=== PATIENT | female | born 1955 | race Caucasian/White ===

== ENCOUNTER 2018-09-13 16:22 | Emergency (ER) | payer OTHER ==
[~2018-09-13] VITALS: Ht 162.6 cm; Wt 68.9 kg
[2018-09-13 16:22] VITALS: BP_SYST 116
[2018-09-13 16:59] LABS: BILIRUBIN,URINE NEGATIVE (NEGATIVE); BLOOD, URINE NEGATIVE (NEGATIVE); CLARITY/URINE CLEAR (CLEAR); COLOR,URINE YELLOW (YELLOW); GLUCOSE,URINE NEGATIVE (NEGATIVE); KETONES,URINE NEGATIVE (NEGATIVE); LEUKOCYTE ESTERASE ,URINE NEGATIVE (NEGATIVE); NITRITE, URINE NEGATIVE (NEGATIVE); PROTEIN URINE NEGATIVE (NEGATIVE); UROBILINOGEN,URINE 0.2 (0.2-1.0)
[2018-09-13] MEDS ORDERED: NACL 0.9% 1,000 ML IV ONE (17:00)
[2018-09-13] MEDS ORDERED: KETOROLAC TROMETHAMINE 15 MG VIAL IVP ONE (17:00)
[2018-09-13 17:49] LABS: CALCIUM 9.3 mg/dL (8.4-11.0); CREATININE 0.78 mg/dL (0.55-1.30)
[2018-09-13 17:53] LABS: POTASSIUM 2.9 mmol/L (3.5-5.1)
[2018-09-13 17:54] LABS: ALBUMIN 3.7 g/dL (3.4-4.8); TOTAL BILIRUBIN 0.4 mg/dL (0.0-1.0)
[2018-09-13] MEDS ORDERED: POTASSIUM CHLORIDE 20 MEQ TAB.PRT.SR PO ONE (18:15)
[2018-09-13 18:36] LABS: HEMATOCRIT 38.8 % (36-48); HEMOGLOBIN 12.7 g/dL (12.0-16.0); RED BLOOD CELL COUNT(AUTO) 4.24 MIL/uL (4.2-6.2); WHITE BLOOD COUNT (AUTO) 10.4 K/uL (4.8-10.8)
[2018-09-13 18:37] LABS: MEAN CORPUSCULAR HEMOGLOBIN 30 pg (27-31); MEAN CORPUSCULAR HGB CONC 33 % (32-36); MEAN CORPUSCULAR VOLUME 92 fL (79.0-98.0); RED CELL DISTRIBUTION WIDTH 12.9 % (9.0-15.0)
[2018-09-13 18:38] LABS: PLATELET COUNT (AUTO) 182 K/uL (130-430)
[2018-09-13 19:38] LABS: BAND % (MANUAL) 3 % (0-6); BASOPHILS % (MANUAL) 0 % (0-2); EOSINOPHILS % (MANUAL) 0 % (0-7); LYMPHOCYTES % (MANUAL) 26 % (20-46); MONOCYTES % (MANUAL) 9 % (0-11)
== END 2018-09-13 19:23 | disposition home or self-care (01) ==
LOC: SED 16:22
DX: M54.5 Low back pain (principal); F32.9 Major depressive disorder, single episode, unspecified; J44.9 Chronic obstructive pulmonary disease, unspecified; I10 Essential (primary) hypertension; Z88.6 Allergy status to analgesic agent; Z91.041 Radiographic dye allergy status; Z91.040 Latex allergy status
CPT/HCPCS: 36415; 70450; 74176; 80053; 81003; 85007; 85027; 96374; 99285; J1885; J7030

== ENCOUNTER 2020-05-09 13:57 | Inpatient (IN) | payer OTHER, SELFPAY ==
[~2020-05-09] VITALS: Ht 162.6 cm; Wt 44.9 kg
--- NOTE | 2020-05-09 14:00 | NUR ---
Patient to ER bed 07 to gown for evaluation. Side rails up.
--- NOTE | 2020-05-09 14:02 | NUR ---
Pt brought by self, A&Ox4, pt presents to ER with bright red rectal bleeding whem she wipes and constipation, pt states symptoms started months ago , skin pink and warm, cap refill <3, VSS, respirations even and unlabored, pt denies N/V/D or other injuries
[2020-05-09 14:14] VITALS: BP_SYST 140
--- NOTE | 2020-05-09 14:15 | NUR ---
Dr Merrill at bedside examining patient
[2020-05-09] MEDS ORDERED: NACL 0.9% 1,000 ML IV ONE (14:38)
[2020-05-09] MEDS ORDERED: PANTOPRAZOLE SODIUM 40 MG/VIAL (PROTONIX) IVP ONE (14:45)
--- NOTE | 2020-05-09 14:50 | NUR ---
# 20 gauge angiocath placed to left wrist. Use of asceptic technique. Opsite placed over site. Blood return noted. Blood for lab drawn from site. Flushed with 10 cc of normal saline. No evidence of infiltration noted. Patient tolerated well.
--- NOTE | 2020-05-09 15:20 | NUR ---
urine sample collected and sent to the lab
--- NOTE | 2020-05-09 15:20 | NUR ---
medicated the pt w/ Protonix and NS 1l per MD order
[2020-05-09 15:34] LABS: BASOPHILS % (AUTO) 0.3 % (0.0-2.0); EOSINOPHILS % (AUTO) 0.3 % (0.0-4.0); HEMATOCRIT 40.5 % (36-48); HEMOGLOBIN 13.8 g/dL (12.0-16.0); LYMPHOCYTES # (AUTO) 1.2 K/uL (1.0-5.5); MEAN CORPUSCULAR HEMOGLOBIN 31 pg (27-31); MEAN CORPUSCULAR HGB CONC 34 % (32-36); MEAN CORPUSCULAR VOLUME 92 fL (79.0-98.0); MONOCYTES # (AUTO) 0.3 K/uL (0.0-1.0); MONOCYTES % (AUTO) 7.1 % (1.7-9.3); NEUTROPHILS # (AUTO) 2.3 K/uL (1.8-7.7); NEUTROPHILS % (AUTO) 60.3 % (40.0-70.0); PLATELET COUNT (AUTO) 283 K/uL (130-430); RED BLOOD CELL COUNT(AUTO) 4.41 MIL/uL (4.2-6.2); RED CELL DISTRIBUTION WIDTH 13.2 % (9.0-15.0); WHITE BLOOD COUNT (AUTO) 3.7 K/uL (4.8-10.8)
[2020-05-09 15:42] LABS: PROTHROMBIN TIME 10.2 SECS (9.5-12.5)
[2020-05-09 15:43] LABS: BILIRUBIN,URINE 1+ (NEGATIVE); BLOOD, URINE NEGATIVE (NEGATIVE); COLOR,URINE YELLOW (YELLOW); GLUCOSE,URINE NEGATIVE (NEGATIVE); KETONES,URINE 1+ (NEGATIVE); LEUKOCYTE ESTERASE ,URINE NEGATIVE (NEGATIVE); NITRITE, URINE NEGATIVE (NEGATIVE); PH,URINE 5.5 (5.0-8.0); PROTEIN URINE TRACE (NEGATIVE); UROBILINOGEN,URINE 0.2 (0.2-1.0)
[2020-05-09 15:47] LABS: CALCIUM 9.2 mg/dL (8.4-11.0); CREATININE 0.64 mg/dL (0.55-1.30); POTASSIUM 3.6 mmol/L (3.5-5.1)
[2020-05-09 15:51] LABS: ALBUMIN 4.1 g/dL (3.4-4.8); TOTAL BILIRUBIN 0.4 mg/dL (0.0-1.0)
[2020-05-09 15:55] LABS: CLARITY/URINE SLIGHTLY HAZY (CLEAR)
[2020-05-09] MEDS ORDERED: CLOPIDOGREL BISULFATE 75 MG TABLET PO ONE (16:00)
[2020-05-09] MEDS ORDERED: ASPIRIN 81 MG TAB.CHEW PO ONE (16:00)
[2020-05-09 16:25] LABS: BACTERIA,URINE FEW /HPF (None Seen); RBC,URINE NONE SEEN /HPF (0-3); WBC,URINE 0-3 /HPF (0-3)
[2020-05-09 16:26] LABS: MUCUS,URINE 1+ /LPF (None Seen)
--- NOTE | 2020-05-09 16:30 | NUR ---
medicated the pt w/ Plavix and Aspirin per MD order. Will reasses
[2020-05-09 16:37] LABS: BASOPHILS % (AUTO) 0.4 % (0.0-2.0); EOSINOPHILS % (AUTO) 0.5 % (0.0-4.0); HEMATOCRIT 35.5 % (36-48); HEMOGLOBIN 12.2 g/dL (12.0-16.0); LYMPHOCYTES # (AUTO) 1.1 K/uL (1.0-5.5); LYMPHOCYTES % (AUTO) 30.8 % (20.5-51.5); MEAN CORPUSCULAR HEMOGLOBIN 32 pg (27-31); MEAN CORPUSCULAR HGB CONC 34 % (32-36); MEAN CORPUSCULAR VOLUME 92 fL (79.0-98.0); MONOCYTES # (AUTO) 0.3 K/uL (0.0-1.0); NEUTROPHILS # (AUTO) 2.1 K/uL (1.8-7.7); NEUTROPHILS % (AUTO) 59.3 % (40.0-70.0); PLATELET COUNT (AUTO) 243 K/uL (130-430); RED BLOOD CELL COUNT(AUTO) 3.85 MIL/uL (4.2-6.2); RED CELL DISTRIBUTION WIDTH 13.3 % (9.0-15.0); WHITE BLOOD COUNT (AUTO) 3.5 K/uL (4.8-10.8)
--- NOTE | 2020-05-09 16:38 | NUR ---
Patient will be admitted to care of Dr. Lewis. Admitted to tele obs unit. Will go to room 106-a. Belongings list completed. Complete and up to date summary report printed. SBAR report to be given at bedside with opportunity for questions. IV is on the LAC patent and infusing well
[2020-05-09] MEDS ORDERED: LISI10TA PO (16:42)
--- NOTE | 2020-05-09 16:43 | NUR ---
Medication reconciliation completed with information provided by pt. Any prior medication reconciliation on file was reviewed and corrected.
--- NOTE | 2020-05-09 16:54 | NUR ---
ADMISSION NOTE Received patient from ER via delgado, received report from TUSHAR PORTER. Patient admitted with diagnosis of ELEVATED TROPONIN. Patient oriented to hospital routine, call light, toileting and safety-patient verbalized understanding.
[2020-05-09 17:07] VITALS: BP_SYST 143
--- NOTE | 2020-05-09 18:19 | NUR ---
CONSULTATION PAGED/CALLED Reason for Consultation: [] chf Person Who was Notified: [] nolan Consulting Physician: [] Dr Camp Residential Treatment Specialist Specialty: [] Cardio Ordering Physician: [] Dr Lewis
--- NOTE | 2020-05-09 19:09 | NUR ---
Handoff with night team registered nurse. Hugh Gallegos RN
[2020-05-09 19:11] VITALS: BP_SYST 163
[2020-05-10 00:22] VITALS: BP_SYST 111
[2020-05-10 06:28] LABS: BASOPHILS % (AUTO) 0.6 % (0.0-2.0); EOSINOPHILS # (AUTO) 0.1 K/uL (0.0-0.4); EOSINOPHILS % (AUTO) 1.7 % (0.0-4.0); HEMATOCRIT 34.2 % (36-48); HEMOGLOBIN 11.8 g/dL (12.0-16.0); LYMPHOCYTES # (AUTO) 1.7 K/uL (1.0-5.5); LYMPHOCYTES % (AUTO) 45.2 % (20.5-51.5); MEAN CORPUSCULAR HEMOGLOBIN 31 pg (27-31); MEAN CORPUSCULAR HGB CONC 34 % (32-36); MEAN CORPUSCULAR VOLUME 91 fL (79.0-98.0); MONOCYTES # (AUTO) 0.3 K/uL (0.0-1.0); MONOCYTES % (AUTO) 7.1 % (1.7-9.3); NEUTROPHILS # (AUTO) 1.7 K/uL (1.8-7.7); NEUTROPHILS % (AUTO) 45.4 % (40.0-70.0); PLATELET COUNT (AUTO) 222 K/uL (130-430); RED BLOOD CELL COUNT(AUTO) 3.78 MIL/uL (4.2-6.2); RED CELL DISTRIBUTION WIDTH 13.2 % (9.0-15.0); WHITE BLOOD COUNT (AUTO) 3.7 K/uL (4.8-10.8)
[2020-05-10 07:00] VITALS: BP_SYST 115
--- NOTE | 2020-05-10 07:20 | NUR ---
CRITICAL LAB VALUE: TROPONIN 0.070. CALL MADE TO DR. WAKEFIELD - BEAM BUILDER ON PT'S CASE. AWAITING CALL-BACK.
--- NOTE | 2020-05-10 07:35 | NUR ---
DR WAKEFIELD CALLED BACK. CRITICAL LAB VALUE FOR TROPONIN OF 0.070 RELAYED TO HIM. . AWARE. NO NEW ORDERS.
[2020-05-10 11:39] VITALS: BP_SYST 122
[2020-05-10] MEDS ORDERED: ONDANSETRON HCL 4 MG/2 ML VIAL IVP PRN (12:30)
[2020-05-10] MEDS ORDERED: LORazepam 2 MG/ML VIAL IVP PRN (12:30)
[2020-05-10] MEDS ORDERED: ACETAMINOPHEN 325 MG TABLET PO PRN (12:30)
[2020-05-10] MEDS ORDERED: DIATR MEGLU/DIATRIZ SOD 30 ML SOLUTION PO ONE (13:57)
[2020-05-10] MEDS ORDERED: NORMAL SALINE 5 ML DISP.SYRIN IVF SCH (14:00)
[2020-05-10] MEDS: NORMAL SALINE 5 ML DISP.SYRIN IVF SCH ×2 (14:00→22:45)
[2020-05-10 15:34] VITALS: BP_SYST 120
[2020-05-10 16:00] VITALS: BP_SYST 121
--- NOTE | 2020-05-10 19:07 | NUR ---
Narrative Note: Received pt awoke alert OX3 lungs clear, abdomen soft, skin intact. Pt's V/SS denies having any pain. Pt GI Physician ordered a CT of the abdomen with contrast Pt was NPO after drinking contrast.. Pt went for CT around 1600 and was back on the unit fifteen minutes later. Pt mainly stayed in bed calm, quiet. hourly rounding was on going. Endorsed to night nurse.
--- NOTE | 2020-05-10 19:30 | NUR ---
OPENING NOTES RECEIVED SBAR REPORT FROM DAY SHIFT RN. PT RESTING IN BED, ALERT & ORIENTED X4. VSS. O2 SAT 100%. BREATHING EVEN AND UNLABORED TO ROOM AIR. PT DENIES ANY PAIN AT THIS TIME. CALL LIGHT WITHIN REACH. BED LOCKED IN LOWEST LEVEL. SAFETY AND FALL PRECAUTIONS ARE IN PLACE. WILL CONTINUE TO MONITOR.
--- NOTE | 2020-05-10 19:31 | NUR ---
Narrative Note: Received report from household refrigerator mechanic nurse that the pt went for EGD. Pt back on the unit around 0930 awoke confused trying to get out of bed. Also observed pt has two point soft wrist restraints. Pt's lung are clear, V/SS, abdomen soft and skin intact. The Nurse sat with the pt thru-out her shift and did give Haldol X1 for pt agitation. Pt restraints were loosen and the pt was monitored closely. for safety and fall prevention. Pt's bed was kept in low position with wheels locked. IVF running, and IV site patent intact. Endorsed to household refrigerator mechanic nurse.
[2020-05-10 20:00] VITALS: BP_SYST 119
--- NOTE | 2020-05-10 22:45 | NUR ---
SALINE FLUSH SALINE FLUSHED WITH 5ML BUT IV WAS LEAKING. REMOVED IV ON LEFT AC 20G. WILL START NEW IV. NO S/S OF DISTRESS AT THIS TIME, PT DENIES ANY PAIN. CALL LIGHT WITHIN REACH. SIDE RAILS X2. BED LOCKED IN LOWEST LEVEL. SAFETY AND FALL PRECAUTIONS IN PLACE. WILL CONTINUE TO MONITOR.
[2020-05-11] VITALS: BP_SYST 117
--- NOTE | 2020-05-11 00:44 | NUR ---
YOAN/ER ADMITTING WAS INFORMED PT HAS BEEN CONVERTED FROM OBSERVATION TO INPATIENT. YOAN WAS ALSO INFORMED ADMITTING MD IS NOW DR. CHILD. YOAN VERBALIZED UNDERSTANDING AND STATED A NEW WRIST ID BAND WILL BE AVAILABLE SOON. PRIMARY NURSE JUSTINA WAS NOTIFIED TO CLIENT SERVICES ADMINISTRATOR NEW WRIST ID BAND FROM ER ADMITTING.
--- NOTE | 2020-05-11 01:05 | NUR ---
RN ROUNDS PT RESTING IN BED, TALKING ON THE PHONE. BREATHING EVEN AND UNLABORED TO ROOM AIR. NO S/S OF DISTRESS NOTED. IV INTACT, SL. BED LOCKED IN LOWEST LEVEL. SIDE RAILS X2. CALL LIGHT WITHIN REACH. SAFETY AND FALL PRECAUTIONS MAINTAINED. WILL CONTINUE TO MONITOR.
--- NOTE | 2020-05-11 01:38 | NUR ---
IV PLACEMENT: # 22 gauge angiocath placed to RIGHT FOREARM. Use of asceptic technique. Opsite placed over site. Blood return noted. Flushed with 5 cc of normal saline. No evidence of infiltration noted. Patient tolerated WELL Start time End time
--- NOTE | 2020-05-11 04:05 | NUR ---
RN ROUNDS PT RESTING IN BED. BREATHING EVEN AND UNLABORED TO ROOM AIR. NO S/S OF DISTRESS NOTED. PT WALKED TO THE BATHROOM, AND BACK TO BED SAFELY. BED LOCKED IN LOWEST LEVEL. SIDE RAILS X2. CALL LIGHT WITHIN REACH. SAFETY AND FALL PRECAUTIONS MAINTAINED. WILL CONTINUE TO MONITOR.
[2020-05-11] MEDS: NORMAL SALINE 5 ML DISP.SYRIN IVF SCH ×3 (06:30→21:23)
--- NOTE | 2020-05-11 06:46 | NUR ---
CLOSING NOTES PT RESTING IN BED. BREATHING EVEN AND UNLABORED TO ROOM AIR. PT DENIES ANY PAIN AT THIS TIME. CALL LIGHT WITHIN REACH. BED LOCKED IN LOWEST LEVEL. SAFETY AND FALL PRECAUTIONS ARE IN PLACE. ALL NEEDS ARE MET THROUGHOUT SHIFT. WILL CONTINUE TO MONITOR UNTIL ENDORSE TO DAY SHIFT RN.
[2020-05-11 07:21] LABS: BASOPHILS % (AUTO) 0.5 % (0.0-2.0); EOSINOPHILS # (AUTO) 0.1 K/uL (0.0-0.4); EOSINOPHILS % (AUTO) 1.4 % (0.0-4.0); HEMATOCRIT 37.6 % (36-48); HEMOGLOBIN 12.8 g/dL (12.0-16.0); LYMPHOCYTES # (AUTO) 1.6 K/uL (1.0-5.5); LYMPHOCYTES % (AUTO) 35.3 % (20.5-51.5); MEAN CORPUSCULAR HEMOGLOBIN 31 pg (27-31); MEAN CORPUSCULAR HGB CONC 34 % (32-36); MEAN CORPUSCULAR VOLUME 90 fL (79.0-98.0); MONOCYTES # (AUTO) 0.4 K/uL (0.0-1.0); MONOCYTES % (AUTO) 8.2 % (1.7-9.3); NEUTROPHILS # (AUTO) 2.4 K/uL (1.8-7.7); NEUTROPHILS % (AUTO) 54.6 % (40.0-70.0); PLATELET COUNT (AUTO) 256 K/uL (130-430); RED BLOOD CELL COUNT(AUTO) 4.18 MIL/uL (4.2-6.2); RED CELL DISTRIBUTION WIDTH 13.1 % (9.0-15.0); WHITE BLOOD COUNT (AUTO) 4.4 K/uL (4.8-10.8)
--- NOTE | 2020-05-11 07:30 | NUR ---
AM ROUNDS: Patient is oriented x4, ambulatory. Denies pain. Patient claims she had a BM with small streaks of blood. Concerns and questions were addressed. Call light within reach.
[2020-05-11 07:37] LABS: ALBUMIN 3.3 g/dL (3.4-4.8); CALCIUM 8.8 mg/dL (8.4-11.0); CREATININE 0.65 mg/dL (0.55-1.30); PHOSPHORUS 2.9 mg/dL (2.7-4.5); POTASSIUM 4.2 mmol/L (3.5-5.1); TOTAL BILIRUBIN 0.5 mg/dL (0.0-1.0)
--- NOTE | 2020-05-11 07:39 | NUR ---
CONSULT GI GI BLEED DR ZHU [phone] S/W [facility]
[2020-05-11 07:40] VITALS: BP_SYST 132
[2020-05-11] MEDS: LISINOPRIL 10 MG TABLET (PRINIVIL) PO SCH (08:16)
--- NOTE | 2020-05-11 09:20 | NUR ---
MD rounds: Seen by Dr. Bingham. Covid test done for Pre-GI procedure.
[2020-05-11] MEDS ORDERED: GOLYTELY / COLYTE SOLUTION 4 LITERS PO ONE (09:45)
[2020-05-11] MEDS ORDERED: MINERAL OIL 30 ML UDC PO ONE (09:45)
[2020-05-11] MEDS ORDERED: BISACODYL 5 MG TABLET.DR (DULCOLAX) PO ONE (09:45)
[2020-05-11] MEDS ORDERED: POLYETHYLENE GLYCOL 3350, 17 GM/ POWD.PACK PO ONE (10:00)
--- NOTE | 2020-05-11 11:00 | NUR ---
Laxatives: Laxatives ordered by Dr. Bingham were given. Patient is aware of the indications.
--- NOTE | 2020-05-11 11:33 | NUR ---
Dietitian Recommendations *Recommend continuing Clear liquid diet No red per MD orders. *Advance diet when medically appropriate. (CCHO 2gm Na w/ snacks in between meals) *Consider appetite stimulant and supplemental PN for weight gain promotion. Please see Nutritional Assessment for details. SOURAV, RD
[2020-05-11 12:27] VITALS: BP_SYST 102
[2020-05-11 15:54] VITALS: BP_SYST 101
--- NOTE | 2020-05-11 17:10 | NUR ---
Colonoscopy prep" Golytely prep started. Patient is instructed on how to drink the prep. Verbalized understanding.
--- NOTE | 2020-05-11 17:56 | NUR ---
End of shift: Needs attended. No change in assessment.
--- NOTE | 2020-05-11 19:30 | NUR ---
OPENING NOTES RECEIVED SBAR REPORT FROM DAY SHIFT RN. PT RESTING IN BED, DRINKING GOLYTELY. PT FINISHED 60% OF GOLYTELY, AND STILL WORKING ON IT. VSS. O2 SAT 100%. PT MANNY ANY PAIN AT THIS TIME. IV INTACT, SL. BREATHING EASY AND UNLABORED TO ROOM AIR. CALL LIGHT WITHIN REACH. SAFETY AND FALL PRECAUTIONS ARE IN PLACE. WILL CONTINUE TO MONITOR.
[2020-05-11 20:00] VITALS: BP_SYST 116
--- NOTE | 2020-05-11 21:23 | NUR ---
SALINE FLUSH 5ML OF SALINE FLUSHED. IV INTACT, NO S/S OF INFILTRATION NOTED. PT STILL DRINKING GOLYTELY, FINISHED 70%. PT GOING TO BATHROOM EVERY 20 MINUTES. PT STATED THAT HER STOOL IS BROWN, LOOSE STOOL, AND SMALL SOLID PARTICLES. BREATHING EVEN AND UNLABORED TO ROOM AIR. NO S/S OF DISTRESS NOTED. CALL LIGHT WITHIN REACH. SAFETY AND FALL PRECAUTIONS MAINTAINED. WILL CONTINUE TO MONITOR.
--- NOTE | 2020-05-11 23:40 | NUR ---
RN ROUNDS PT GOING TO BATHROOM EVERY 10 MINUTES NOW. FINISHED 80% OF GOLYTELY AT THIS TIME. PT STATED THAT HER STOOL IS SAME BEFORE, LOOSE STOOL, BROWN AND SMALL SOLID PARTICLES. PT DENIES ANY PAIN AT THIS TIME. BREATHING EVEN AND UNLABORED TO ROOM AIR. CALL LIGHT WITHIN REACH. SAFETY PRECAUTIONS MAINTAINED. WILL CONTINUE TO MONITOR.
[2020-05-12] VITALS: BP_SYST 113
--- NOTE | 2020-05-12 02:08 | NUR ---
RN ROUNDS PT IS IN BATHROOM, HAVING ANOTHER BOWEL MOVEMENT. PT STATING THAT HER STOOL IS GETTING RETAIL STOCKER THAN BEFORE. PT FINISHED 90% OF GOLYTELY, MANNY ANY PAIN AT THIS TIME. CALL LIGHT WITHIN REACH. SAFETY PRECAUTIONS IN PLACE. WILL CONTINUE TO MONITOR.
--- NOTE | 2020-05-12 04:24 | NUR ---
SPOKE TO DR. RICHMOND SPOKE TO DR. RICHMOND REGARDING PT LOW HEART RATE. NEW ORDER RECEIVED. WILL CARRY OUT. ADDITIONAL NOTES: HR TRENDING DOWN, LOWEST 48. PT HR USUALLY RUNS BETWEEN 65-75, BUT NOW RUNS 48-58. PT BEEN DRINKING GOLYTELY, GOING TO BATHROOM EVERY 20MINUTES, HAVING CONTINUOUS LOOSE STOOL. NOTIFIED DR. RICHMOND, NEW ORDER RECEIVED. WILL CARRY OUT.
[2020-05-12] MEDS: NACL 0.9% 1,000 ML IV SCH ×3 (04:41→20:52)
[2020-05-12] MEDS: NORMAL SALINE 5 ML DISP.SYRIN IVF SCH ×3 (05:58→20:52)
--- NOTE | 2020-05-12 06:25 | NUR ---
CLOSING NOTES HR BACK TO NORMAL RANGE, 64 NOW. IVF RUNNING ORDERED RATE. NO S/S OF INFILTRATION NOTED. PT IS HAVING WARE DRESSER LOOSE TOOL THAN BEFORE, YELLOW LOOSE STOOL WITH SOME PARTICLES. BREATHING EVEN AND UNLABORED TO ROOM AIR. ALL NEEDS ARE MET THROUGHOUT SHIFT. CALL LIGHT WITHIN REACH. SAFETY PRECAUTIONS MAINTAINED. WILL CONTINUE TO MONITOR UNTIL ENDORSE TO DAY SHIFT RN.
[2020-05-12 07:43] VITALS: BP_SYST 111
--- NOTE | 2020-05-12 07:51 | NUR ---
am rounds: Patient is awake, oriented. Complaints of feeling tired from getting up to the bathroom. Patient was prepped for colonoscopy. IV fluids of normal saline at 100 cc/hr on the right arm gauge 22. Patient is kept NPO. Call light within reach.
[2020-05-12] MEDS: POLYETHYLENE GLYCOL 3350, 17 GM/ POWD.PACK PO SCH (09:00)
[2020-05-12] MEDS: LISINOPRIL 10 MG TABLET (PRINIVIL) PO SCH (09:00)
[2020-05-12] MEDS ORDERED: MAGNESIUM CITRATE 300 ML ORAL SOLUTION PO ONE (09:00)
--- NOTE | 2020-05-12 10:00 | NUR ---
BRP: output is clear, no fecal material noted.
[2020-05-12 12:26] VITALS: BP_SYST 116
[2020-05-12] MEDS: MIDAZOLAM HCL 5 MG/5 ML VIAL ONE ×4 (14:53→18:30)
[2020-05-12] MEDS: fentaNYL CITRATE/PF 100 MCG/2 ML AMP ONE ×3 (14:53→15:13)
--- NOTE | 2020-05-12 15:00 | NUR ---
TO GI LAB: To GI lab for colonoscopy.
[2020-05-12] MEDS ORDERED: SIMETHICONE 40 MG/0.6 ML ML ONE (15:03)
--- NOTE | 2020-05-12 16:40 | NUR ---
CONSULT SURGERY RECTAL MASS AP URIAS [phone] S/W [facility] EMERGENCY DEPARTMENT OFFICE
--- NOTE | 2020-05-12 16:50 | NUR ---
S/P colonoscopy: Received from GI lab. Patient is awake, denies pain.
[2020-05-12 16:52] VITALS: BP_SYST 118
--- NOTE | 2020-05-12 17:59 | NUR ---
AM rounds: Needs attended. No change in assessment. Started on clear liquid diet.
--- NOTE | 2020-05-12 18:04 | NUR ---
end of shift: AM rounds: Needs attended. No change in assessment. Started on clear liquid diet.
--- NOTE | 2020-05-12 19:30 | NUR ---
OPENING NOTES RECEIVED SBAR REPORT FROM DAY SHIFT RNPRATIK. PT RESTING IN BED, AOX4. VSS. O2 SAT 100%. BREATHING EVEN AND UNLABORED TO ROOM AIR. PT DENIES ANY PAIN AT THIS TIME. CALL LIGHT WITHIN REACH. BED LOCKED IN LOWEST LEVEL. SAFETY AND FALL PRECAUTIONS ARE IN PLACE. WILL CONTINUE TO MONITOR.
[2020-05-12 20:00] VITALS: BP_SYST 121
--- NOTE | 2020-05-12 20:52 | NUR ---
IVF New bag of NS hung and set to infuse at ordered rate. Patient is resting in bed with no s/s of acute distress. Safety maintained. Will monitor.
--- NOTE | 2020-05-12 23:05 | NUR ---
RN ROUNDS/AMBULATED TO RESTROOM PT AMBULATED TO RESTROOM WITH STEADY GAIT TO URINATE. PT RETURNED TO BED AND REPOSITIONED HERSELF FOR COMFORT. NO S/S OF ACUTE DISTRESS. PT TOLERATED ACTIVITY WELL. SAFETY AND FALL PRECAUTIONS ARE IN PLACE. WILL MONITOR.
[2020-05-13 00:41] VITALS: BP_SYST 114
--- NOTE | 2020-05-13 01:22 | NUR ---
RN ROUNDS: PT RESTING IN BED, EYES ARE CLOSED. BREATHING EVEN AND UNLABORED TO ROOM AIR. NO S/S OF DISTRESS NOTED. IV INTACT, IVF INFUSING AT ORDERED RATE. BED LOCKED IN LOWEST LEVEL. SIDE RAILS X2. CALL LIGHT WITHIN REACH. SAFETY AND FALL PRECAUTIONS MAINTAINED. WILL CONTINUE TO MONITOR.
[2020-05-13] MEDS: NACL 0.9% 1,000 ML IV SCH ×2 (05:10→19:04)
[2020-05-13] MEDS: NORMAL SALINE 5 ML DISP.SYRIN IVF SCH ×3 (05:11→20:30)
--- NOTE | 2020-05-13 06:36 | NUR ---
CLOSING NOTES PT RESTING IN BED, AOX4. VSS. BREATHING EVEN AND UNLABORED TO ROOM AIR. PT DENIES ANY PAIN AT THIS TIME. PT REPORTS STILL BLEEDING FROM THE RECTUM. CALL LIGHT WITHIN REACH. BED LOCKED IN LOWEST LEVEL. SAFETY AND FALL PRECAUTIONS ARE IN PLACE. WILL CONTINUE TO MONITOR UNTIL PT CARE IS ENDORSED TO DAY SHIFT RN.
[2020-05-13 08:55] VITALS: BP_SYST 120
[2020-05-13] MEDS ORDERED: GADOBENATE DIMEGLUMINE 529 MG/ML, 5 ML VIAL IV ONE (11:11)
[2020-05-13 12:19] VITALS: BP_SYST 137
[2020-05-13] MEDS ORDERED: EPINEPHrine JECT 0.1 MG/ML SYR IVP ONE (13:28)
[2020-05-13] MEDS: LISINOPRIL 10 MG TABLET (PRINIVIL) PO SCH (14:31)
[2020-05-13] MEDS: POLYETHYLENE GLYCOL 3350, 17 GM/ POWD.PACK PO SCH (14:37)
[2020-05-13 16:50] VITALS: BP_SYST 131
--- NOTE | 2020-05-13 19:30 | NUR ---
OPENING NOTES RECEIVED SBAR REPORT FROM DAY SHIFT RN. PT RESTING IN BED, AOX4. VSS. BREATHING EVEN AND UNLABORED TO ROOM AIR. PT DENIES ANY PAIN AT THIS TIME. CALL LIGHT WITHIN REACH. BED LOCKED IN LOWEST LEVEL. SAFETY AND FALL PRECAUTIONS ARE IN PLACE. WILL CONTINUE TO MONITOR.
[2020-05-13 20:00] VITALS: BP_SYST 105
--- NOTE | 2020-05-13 21:40 | NUR ---
RN ROUNDS: PT AWAKE AND RESTING IN BED. BREATHING EVEN AND UNLABORED TO ROOM AIR. NO S/S OF DISTRESS NOTED. IV INTACT, IVF INFUSING AT ORDERED RATE. BED LOCKED IN LOWEST LEVEL. SIDE RAILS X2. CALL LIGHT WITHIN REACH. SAFETY AND FALL PRECAUTIONS MAINTAINED. WILL CONTINUE TO MONITOR.
--- NOTE | 2020-05-14 | NUR ---
NPO PT NPO FOR POSSIBLE SURGERY TODAY.
[2020-05-14 00:54] VITALS: BP_SYST 92
--- NOTE | 2020-05-14 02:30 | NUR ---
RN ROUNDS: PT RESTING IN BED. BREATHING EVEN AND UNLABORED TO ROOM AIR. NO S/S OF DISTRESS NOTED. IV INTACT, IVF INFUSING AT ORDERED RATE. BED LOCKED IN LOWEST LEVEL. SIDE RAILS X2. CALL LIGHT WITHIN REACH. SAFETY AND FALL PRECAUTIONS MAINTAINED. WILL CONTINUE TO MONITOR.
[2020-05-14] MEDS: NACL 0.9% 1,000 ML IV SCH ×3 (05:34→19:47)
[2020-05-14] MEDS: NORMAL SALINE 5 ML DISP.SYRIN IVF SCH ×3 (05:34→21:19)
--- NOTE | 2020-05-14 07:17 | NUR ---
CLOSING NOTES PT RESTING IN BED, AOX4. VSS. BREATHING EVEN AND UNLABORED TO ROOM AIR. PT DENIES ANY PAIN AT THIS TIME. CALL LIGHT WITHIN REACH. BED LOCKED IN LOWEST LEVEL. SAFETY AND FALL PRECAUTIONS ARE IN PLACE. WILL CONTINUE TO MONITOR UNTIL PT CARE IS ENDORSED TO DAY SHIFT RN.
--- NOTE | 2020-05-14 07:40 | NUR ---
Opening Note received bedside SBAR report from night manager RN, patient resting in bed, respirations even and unlabored on room air, no acute distress noted, patient reports pain is controlled at this time, educated patient on use of call light and asked to call for assistance, patient verbalized understanding, call light in reach, educated patient on use of bed alarm for patient safety, patient refusing bed alarm, bed in low and locked position.
[2020-05-14 08:00] VITALS: BP_SYST 115
[2020-05-14] MEDS: LISINOPRIL 10 MG TABLET (PRINIVIL) PO SCH ×2 (08:18→08:22)
[2020-05-14] MEDS: POLYETHYLENE GLYCOL 3350, 17 GM/ POWD.PACK PO SCH (08:22)
--- NOTE | 2020-05-14 08:23 | NUR ---
Physician Rounds Dr. Nogueira at bedside examining patient.
--- NOTE | 2020-05-14 08:36 | NUR ---
Physician Rounds Dr. Stern at bedside speaking with patient.
[2020-05-14 10:08] LABS: BASOPHILS % (AUTO) 0.6 % (0.0-2.0); EOSINOPHILS # (AUTO) 0.1 K/uL (0.0-0.4); EOSINOPHILS % (AUTO) 2.1 % (0.0-4.0); HEMATOCRIT 35.4 % (36-48); HEMOGLOBIN 12.6 g/dL (12.0-16.0); LYMPHOCYTES # (AUTO) 1.3 K/uL (1.0-5.5); LYMPHOCYTES % (AUTO) 38.7 % (20.5-51.5); MEAN CORPUSCULAR HEMOGLOBIN 32 pg (27-31); MEAN CORPUSCULAR HGB CONC 36 % (32-36); MEAN CORPUSCULAR VOLUME 90 fL (79.0-98.0); MONOCYTES # (AUTO) 0.2 K/uL (0.0-1.0); MONOCYTES % (AUTO) 5.4 % (1.7-9.3); NEUTROPHILS # (AUTO) 1.8 K/uL (1.8-7.7); NEUTROPHILS % (AUTO) 53.2 % (40.0-70.0); PLATELET COUNT (AUTO) 249 K/uL (130-430); RED BLOOD CELL COUNT(AUTO) 3.94 MIL/uL (4.2-6.2); RED CELL DISTRIBUTION WIDTH 12.9 % (9.0-15.0); WHITE BLOOD COUNT (AUTO) 3.4 K/uL (4.8-10.8)
[2020-05-14 10:17] LABS: CREATININE 0.63 mg/dL (0.55-1.30); POTASSIUM 3.4 mmol/L (3.5-5.1)
[2020-05-14 10:30] LABS: ALBUMIN 2.9 g/dL (3.4-4.8); TOTAL BILIRUBIN 0.4 mg/dL (0.0-1.0)
--- NOTE | 2020-05-14 11:59 | NUR ---
IV access IV to right forearm leaking, IV catheter removed, catheter intact, no bleeding, educated patient on purpose and procedure for IV catheter placement, patient verbalized understanding, IV catheter placed to left AC, 22G, flushes easily with blood return, patient tolerated well.
--- NOTE | 2020-05-14 12:10 | NUR ---
Enema educated patient on purpose and procedure for tap water enema, patient verbalized understanding, tap water enema completed, 1L, patient had bowel movement, no solid pieces noted, patient resting in bed.
[2020-05-14 12:29] VITALS: BP_SYST 124
--- NOTE | 2020-05-14 13:05 | NUR ---
Enema educated patient on purpose and procedure for tap water enema, patient verbalized understanding, tap water enema completed, 1L, patient had mutiple bowel movements, bowel movement clear, patient resting in bed.
--- NOTE | 2020-05-14 14:14 | NUR ---
to OR report given to BARREL LINER, informed Carmencita RN that surgeon explained the procedure to the patient earlier today but has not yet signed the informed consent, informed Carmencita RN that anesthesia has not spoken to patient and consent for anesthesia has not yet been signed, IV site clean, dry, and intact, respirations even and unlabored on room air, no acute distress noted, patient taken to OR via gurney by BARREL LINER.
[2020-05-14] MEDS ORDERED: BUPIVACAINE LIPOSOME/PF 266 MG/20 ML VIAL INFIL ONE (15:41)
[2020-05-14] MEDS ORDERED: fentaNYL CITRATE/PF 100 MCG/2 ML AMP IVP PRN ×2 (15:45)
[2020-05-14] MEDS ORDERED: ONDANSETRON HCL 4 MG/2 ML VIAL IVP PRN (15:45)
--- NOTE | 2020-05-14 16:47 | NUR ---
Nutrition F/U Admitting Diagnosis Elevated Troponin Medical History Comment: Pt found w/: GI bleed, Leukopenia, Anemia, Azotemia, Elevated Troponin, COPD, DM, HTN, FTT per MD notes. Malnutrition identified per RD Evaluation (05/11). Subjective Information Per MD notes, colonoscopy showed elongated mass that is not rescectable endoscopically and biopsy results are pending for suspicions of malignancy. Pt is scheduled for tumor resection surgery today, currently NPO. Pt had an avg of 52% PO intake x 10 meals on previous clear liquid diet. Pt is not yet meeting nutrition needs and will benefit from continued supplementation or snacks when diet is re-initiated. Current Diet Order/Nutrition Support Clear liquid diet x2 days (diet order active, but RN confirms NPO) Pertinent Medications Zofran. Miralax, Lisinopril Skin Integrity Comment: Aashish scale: 21, No PIs, no edema noted. Current % PO Poor (25-49%) Estimated Energy Expenditure (kcals/day) 2868-5977 kcal/day (25-30 kcal/kg CBW for gradual weight gain promotion) Estimated Protein Required (g/day) 45-68 gm/day (1-1.5 gm/kg CBW for gradual weight gain promotion) Estimated Fluid Required (l/day) 1.4 L/day (30ml/kg CBW for adult maintenance) Problem/Etiology/Signs/Symptoms Malnutrition r/t chonic illness AEB unintentional weight loss of 50-60# and poor PO intake for 1 1/2 years (*ongoing) Expected Outcomes/Goals Monitor advancement of diet, appetite and PO intake w/ goal of pt meeting at least 75% of estimated nutritional needs, labs trending WNL, normal GI function, skin integrity/wt maintenance. Dietitian Recommendations *Re-initiate diet when medically appropriate. Follow Up High Risk: F/U in 2-3days
--- NOTE | 2020-05-14 16:54 | NUR ---
Dietitian Recommendations *Re-initiate diet when medically appropriate. Please see Nutrition F/U for further details. LT, RD
[2020-05-14] MEDS ORDERED: HYDROcodone/ACETAMIN 5-325 MG TAB (NORCO/ VICODIN) PO PRN (18:15)
[2020-05-14] MEDS ORDERED: ROCURONIUM BROMIDE 10 MG/ML (ZEMURON) ONE (18:20)
[2020-05-14] MEDS ORDERED: KETOROLAC TROMETHAMINE 30 MG VIAL ONE (18:20)
[2020-05-14] MEDS ORDERED: metroNIDAZOLE 500 mg/NS 100 mL IVPB IV ONE (18:20)
[2020-05-14] MEDS ORDERED: fentaNYL CITRATE/PF 100 MCG/2 ML AMP ONE (18:20)
[2020-05-14] MEDS ORDERED: LR 1,000 ML IV.SOLN IV ONE (18:20)
[2020-05-14] MEDS ORDERED: MIDAZOLAM HCL 5 MG/ML VIAL (VERSED) IV ONE (18:20)
[2020-05-14] MEDS ORDERED: GLYCOPYRROLATE 0.2 MG/ML VIAL ONE (18:20)
[2020-05-14] MEDS ORDERED: ONDANSETRON HCL 4 MG/2 ML VIAL ONE (18:20)
[2020-05-14] MEDS ORDERED: CEFAZOLIN 1 GM IVPB PREMIX 50 ML IV ONE (18:20)
[2020-05-14] MEDS ORDERED: PROPOFOL 200MG/ 20ML VIAL (DIPRIVAN) IV ONE (18:20)
[2020-05-14] MEDS ORDERED: SEVOFLURANE 15 MIN GAS INH ONE (18:20)
[2020-05-14] MEDS ORDERED: BUPIVACAINE /PF 0.25% 30 ML VIAL INJ ONE (18:20)
[2020-05-14] MEDS ORDERED: NS IRRIG SOLN 1000 ML IR ONE (18:20)
--- NOTE | 2020-05-14 19:04 | NUR ---
Closing Note SBAR report given to Aster PORTER, patient is still in OR at this time.
--- NOTE | 2020-05-14 19:20 | NUR ---
RECEIVED PT FROM RR VIA CARLA.DROWSY.IVF LR INFUSING ON HER LAC.SCD ON BILATERAL EXTREMITIES.O2 SAT ON RA 100 %.AFEBRILE.DENIES ANY DISCOMFORT @ THIS TIME. INSTRUCTED TO USE CALL LIGHT NEEDED;WITHIN REACH.
[2020-05-14 20:00] VITALS: BP_SYST 111; BP_SYST 121
[2020-05-14] MEDS: HYDROmorphone 1 MG INJ. 1 MG/ML AMPUL IM PRN (21:06)
--- NOTE | 2020-05-14 21:06 | NUR ---
C/O SEVERE PULLING PAIN ON BILATERAL LOWER EXTREMITIES.DILAUDID 1 MG IVP ADM.
[2020-05-14 21:10] VITALS: BP_SYST 133
[2020-05-14] MEDS: ceFAZolin SODIUM 2 GM in D5W 100 ML IV SCH (21:15)
--- NOTE | 2020-05-14 21:36 | NUR ---
PER PT PAIN STILL PERSIST BUT DECREASED TO 3/10.
[2020-05-14] MEDS: metroNIDAZOLE 500 mg/NS 100 ML IV SCH (22:35)
--- NOTE | 2020-05-14 23:00 | NUR ---
RT GAVE THE IS & EXPLAINED HOW TO USE.PT ABLE TO RAISED IS TO 1500.ENC TO USE 10X WHILE AWAKE;VERBALIZED UNDERSTANDING OF THE INSTRUCTION GIVEN.
--- NOTE | 2020-05-15 | NUR ---
V/S STABLE.AFEBRILE. O2 SAT ON RA 96%.
--- NOTE | 2020-05-15 | NUR ---
HAD WATERY STOOL,MODERATE IN AMOUNT.CLEAN & REPOSITION BY AGRICULTURAL CHEMICALS INSPECTOR.
[2020-05-15 00:09] VITALS: BP_SYST 100
--- NOTE | 2020-05-15 02:00 | NUR ---
VOIDING FREELY THRU THE BEDPAN.IVF NS @ 100 ML/HR INFUSING WELL.
--- NOTE | 2020-05-15 04:00 | NUR ---
RESTING COMFORTABLY IN NO ACUTE DISTRESS.
[2020-05-15] MEDS: NACL 0.9% 1,000 ML IV SCH ×2 (04:38→16:23)
[2020-05-15] MEDS: ceFAZolin SODIUM 2 GM in D5W 100 ML IV SCH ×3 (05:17→21:30)
[2020-05-15 05:24] VITALS: BP_SYST 107
[2020-05-15] MEDS: HYDROmorphone 1 MG INJ. 1 MG/ML AMPUL IM PRN (05:34)
--- NOTE | 2020-05-15 05:34 | NUR ---
DILAUDID IV ADM FOR SEVERE RIGHT LEG PAIN.
[2020-05-15] MEDS: NORMAL SALINE 5 ML DISP.SYRIN IVF SCH ×3 (05:42→21:30)
--- NOTE | 2020-05-15 06:04 | NUR ---
PER PT PAIN WITH RELIEF POST DILAUDID.
[2020-05-15] MEDS: metroNIDAZOLE 500 mg/NS 100 ML IV SCH ×3 (06:51→22:00)
--- NOTE | 2020-05-15 06:55 | NUR ---
ENDORSED RESTING COMFORTABLY IN NO ACUTE DISTRESS.IVF INFUSING WELL. SAFETY MAINTAINED.
[2020-05-15 08:00] VITALS: BP_SYST 102
[2020-05-15] MEDS: LISINOPRIL 10 MG TABLET (PRINIVIL) PO SCH (09:00)
[2020-05-15] MEDS: POLYETHYLENE GLYCOL 3350, 17 GM/ POWD.PACK PO SCH (09:00)
--- NOTE | 2020-05-15 10:44 | NUR ---
Patient is resting in bed. Patient denies pain and shortness of breath. Tylenol given for temperature of 99.0. Reassessed patient and temperature 99.2. Will continue to monitor. AM care completed. Bed in low position. Call light in reach. Will continue to monitor patient throughout shift.
--- NOTE | 2020-05-15 11:34 | NUR ---
MRSA screen completed and sent to lab.
--- NOTE | 2020-05-15 14:19 | NUR ---
PAGED PAGED MATEUSZ BUSTAMANTE RAJNISH SPOKE WITH SHELDON.
--- NOTE | 2020-05-15 14:54 | NUR ---
Patient refused antibiotics. Patient stated that when antibiotics are administered she has diarrhea. Notified charge nurse. Paged the doctor.
--- NOTE | 2020-05-15 15:10 | NUR ---
Spoke with patients brother Scott about discharge and gave him an update on patients status. Scott (brother)
--- NOTE | 2020-05-15 18:49 | NUR ---
Patient is in bed resting. Patient denies pain and shortness of breath. Patient is bale to ambulate independently. All care needs met throughout shift. Bed in low position. Call light in reach. Will give report to night nurse.
[2020-05-15 20:00] VITALS: BP_SYST 114
--- NOTE | 2020-05-15 20:00 | NUR ---
A/A/ O X4.DENIES ANY DISCOMFORT @ THIS TIME. DENIES CP.DENIES SOB. INSTRUCTED TO USE CALL LIGHT NEEDED; WITHIN REACH. AFEBRILE. V/S STABLE. O2 SAT ON RA 99%. IVF RESUMED NS @ 100ML/HR INFUSING WELL.
--- NOTE | 2020-05-15 22:00 | NUR ---
WATCHING TV.IVF NS INFUSING WELL.
[2020-05-16] VITALS (7 sets, daily range): BP systolic 96–110
[2020-05-16] MEDS: NACL 0.9% 1,000 ML IV SCH ×3 (01:26→21:12)
--- NOTE | 2020-05-16 02:00 | NUR ---
AMBULATORY TO THE BR.ASSISTED BACK TO BED. STATED URINE ON THE FLOOR;CLEAN BY RN.
--- NOTE | 2020-05-16 04:00 | NUR ---
RESTING COMFORTABLY IN NO ACUTE DISTRESS. CALL LIGHT WITHIN REACH.
[2020-05-16] MEDS: NORMAL SALINE 5 ML DISP.SYRIN IVF SCH ×3 (05:46→22:00)
[2020-05-16] MEDS: ceFAZolin SODIUM 2 GM in D5W 100 ML IV SCH ×3 (05:47→21:12)
[2020-05-16] MEDS: metroNIDAZOLE 500 mg/NS 100 ML IV SCH ×3 (06:00→21:17)
--- NOTE | 2020-05-16 07:00 | NUR ---
ENDORSED IN NO ACUTE DISTRESS.IVF INFUSING WELL.SAFETY MAINTAINED.
--- NOTE | 2020-05-16 08:00 | NUR ---
Note Pt sitting up in bed eating her breakfast. No SOB/resp distress or pain/discomfort noted at this time. IV in left AC intact and patent at this time. No needs noted at this time. Call light within reach.
[2020-05-16] MEDS: POLYETHYLENE GLYCOL 3350, 17 GM/ POWD.PACK PO SCH (08:29)
[2020-05-16] MEDS: LISINOPRIL 10 MG TABLET (PRINIVIL) PO SCH (08:29)
[2020-05-16 08:42] LABS: BASOPHILS % (AUTO) 0.1 % (0.0-2.0); EOSINOPHILS % (AUTO) 0.2 % (0.0-4.0); HEMATOCRIT 35.3 % (36-48); HEMOGLOBIN 12.2 g/dL (12.0-16.0); LYMPHOCYTES # (AUTO) 0.4 K/uL (1.0-5.5); LYMPHOCYTES % (AUTO) 2.6 % (20.5-51.5); MEAN CORPUSCULAR HEMOGLOBIN 31 pg (27-31); MEAN CORPUSCULAR HGB CONC 35 % (32-36); MEAN CORPUSCULAR VOLUME 89 fL (79.0-98.0); MONOCYTES # (AUTO) 0.2 K/uL (0.0-1.0); MONOCYTES % (AUTO) 1.6 % (1.7-9.3); NEUTROPHILS # (AUTO) 14.1 K/uL (1.8-7.7); PLATELET COUNT (AUTO) 221 K/uL (130-430); RED BLOOD CELL COUNT(AUTO) 3.95 MIL/uL (4.2-6.2); RED CELL DISTRIBUTION WIDTH 13.2 % (9.0-15.0); WHITE BLOOD COUNT (AUTO) 14.8 K/uL (4.8-10.8)
[2020-05-16 09:13] LABS: CALCIUM 8.7 mg/dL (8.4-11.0); CREATININE 0.74 mg/dL (0.55-1.30)
[2020-05-16 09:31] LABS: POTASSIUM 2.8 mmol/L (3.5-5.1)
--- NOTE | 2020-05-16 09:54 | NUR ---
PAGED DR STEELE FOR CRITICAL LABS
--- NOTE | 2020-05-16 10:00 | NUR ---
Note Dr Stern on the floor at 0750am on the floor and assessed pt. Pt may go home from surgical point of view. Dr Wallace was on the floor at 0805am to assess pt and write orders at this time.
[2020-05-16] MEDS ORDERED: POTASSIUM CHLORIDE 20 MEQ TAB.PRT.SR PO ONE ×2 (10:30→17:45)
[2020-05-16] MEDS ORDERED: POTASSIUM CHLORIDE 40 MEQ in NS 250 ML IV ONE (11:00)
--- NOTE | 2020-05-16 12:30 | NUR ---
Note Dr Wallace called back and critical Potassium lab level noted. Orders received and carried out at this time. Pt was moved from room 108C to room 103B. Pt has K-rider infusing well at this time. Call light within reach.
[2020-05-16 12:35] LABS: NEUTROPHILS % (AUTO) 95.5 % (40.0-70.0)
--- NOTE | 2020-05-16 14:20 | NUR ---
Note Pt resting in bed - no needs noted at this time. K-rider infusing at this time. Ancef IVPB held.
--- NOTE | 2020-05-16 15:50 | NUR ---
Note Pt's brother called for update on pt's status - update given and informed him that pt's potassium was low and we are given IVF's potassium at slow rate (67cc/hr) so there will be no pain or burning sensation. Pt resting in bed. No needs noted at this time. Call light within reach.
[2020-05-16 17:23] LABS: HEMOGLOBIN 11.9 g/dL (12.0-16.0); LYMPHOCYTES # (AUTO) 0.6 K/uL (1.0-5.5); NEUTROPHILS # (AUTO) 13.3 K/uL (1.8-7.7); PLATELET COUNT (AUTO) 214 K/uL (130-430)
[2020-05-16 17:27] LABS: EOSINOPHILS # (AUTO) 0.1 K/uL (0.0-0.4); EOSINOPHILS % (AUTO) 0.4 % (0.0-4.0); HEMATOCRIT 35.5 % (36-48); LYMPHOCYTES % (AUTO) 4.5 % (20.5-51.5); MEAN CORPUSCULAR HEMOGLOBIN 30 pg (27-31); MEAN CORPUSCULAR HGB CONC 33 % (32-36); MONOCYTES # (AUTO) 0.2 K/uL (0.0-1.0); MONOCYTES % (AUTO) 1.6 % (1.7-9.3); NEUTROPHILS % (AUTO) 93.5 % (40.0-70.0); RED CELL DISTRIBUTION WIDTH 13.5 % (9.0-15.0); WHITE BLOOD COUNT (AUTO) 14.3 K/uL (4.8-10.8)
[2020-05-16 17:29] LABS: MEAN CORPUSCULAR VOLUME 91 fL (79.0-98.0)
[2020-05-16 17:34] LABS: ALBUMIN 2.3 g/dL (3.4-4.8); CALCIUM 8.3 mg/dL (8.4-11.0); CREATININE 0.75 mg/dL (0.55-1.30); POTASSIUM 4.6 mmol/L (3.5-5.1); TOTAL BILIRUBIN 0.2 mg/dL (0.0-1.0)
--- NOTE | 2020-05-16 17:48 | NUR ---
Note Dr Nogueira called at 1740 and stated give a dose of 40meq of K-Dur PO and discharge pt home tonight. Pt notified. Pt calling family to see if she can get someone to pick her up.
[2020-05-16] MEDS ORDERED: POTASSIUM CHLORIDE 20 MEQ TAB.PRT.SR ONE (18:13)
--- NOTE | 2020-05-16 18:15 | NUR ---
Note Pt was given 40meq PO and K-rider of 40meq IVPB completed at this time. Pt sitting up in bed and eating her dinner. Pt still trying to find a family member or friend to pick her up. No SOB/resp distress or pain/discomfort noted at this time. Pt was checked on q1' and PRN all shift for needs and care. Pt is concerned about not having a bowel movement since surgery, states she only has smears. IV in left AC intact and patent at this time. Pt ambulated to restroom all shift to void. No needs noted at this time. Call light within reach. Pt maintained with safety precautions all shift.
[2020-05-17 01:05] VITALS: BP_SYST 113
[2020-05-17] MEDS: ceFAZolin SODIUM 2 GM in D5W 100 ML IV SCH (06:13)
[2020-05-17] MEDS: NORMAL SALINE 5 ML DISP.SYRIN IVF SCH (06:13)
[2020-05-17] MEDS: metroNIDAZOLE 500 mg/NS 100 ML IV SCH (06:14)
[2020-05-17 07:17] LABS: BASOPHILS % (AUTO) 0.1 % (0.0-2.0); EOSINOPHILS # (AUTO) 0.1 K/uL (0.0-0.4); EOSINOPHILS % (AUTO) 0.8 % (0.0-4.0); HEMATOCRIT 33.1 % (36-48); HEMOGLOBIN 11.3 g/dL (12.0-16.0); LYMPHOCYTES # (AUTO) 0.7 K/uL (1.0-5.5); LYMPHOCYTES % (AUTO) 5.6 % (20.5-51.5); MEAN CORPUSCULAR HEMOGLOBIN 31 pg (27-31); MEAN CORPUSCULAR HGB CONC 34 % (32-36); MEAN CORPUSCULAR VOLUME 91 fL (79.0-98.0); MONOCYTES # (AUTO) 0.2 K/uL (0.0-1.0); MONOCYTES % (AUTO) 1.8 % (1.7-9.3); NEUTROPHILS # (AUTO) 10.8 K/uL (1.8-7.7); NEUTROPHILS % (AUTO) 91.7 % (40.0-70.0); PLATELET COUNT (AUTO) 193 K/uL (130-430); RED BLOOD CELL COUNT(AUTO) 3.66 MIL/uL (4.2-6.2); RED CELL DISTRIBUTION WIDTH 13.1 % (9.0-15.0); WHITE BLOOD COUNT (AUTO) 11.8 K/uL (4.8-10.8)
[2020-05-17 07:31] LABS: CALCIUM 8.2 mg/dL (8.4-11.0); CREATININE 0.57 mg/dL (0.55-1.30)
[2020-05-17] MEDS: NACL 0.9% 1,000 ML IV SCH (07:45)
[2020-05-17 08:00] VITALS: BP_SYST 124
--- NOTE | 2020-05-17 08:00 | NUR ---
OPENING NOTES Received report from cnc machinist 2nd shift nurse. Patient resting in bed, AAOx4, breathing evenly and nonlabored to room air. Patient has an SL on right arm, patent and benign, no s/s of infection or infiltration noted at this time. Educated patient on plan of care, fall/safety/isolation precautions, call light system, patient verbalized understanding with return demonstration. Bed is locked and at lowest position, will continue to monitor.
[2020-05-17] MEDS ORDERED: DOCU-144 PO (08:53)
[2020-05-17] MEDS ORDERED: HYDR-4272 PO (08:53)
[2020-05-17] MEDS ORDERED: AMOX-426 PO (08:53)
[2020-05-17] MEDS: LISINOPRIL 10 MG TABLET (PRINIVIL) PO SCH (09:08)
--- NOTE | 2020-05-17 09:20 | NUR ---
Discharge Patient came here because of rectal bleeding. Improved the bleed and VSS. Patient will d/c home with prescription. Instruction was provided and prescription was given. D/C Sl and patient was picked up by brother.
== END 2020-05-17 09:25 | disposition home or self-care (01) | DRG 393 ==
LOC: SED 13:57 → STU 16:11 → EEVIPCON 05-10 12:57 → OBSVTOIN 05-10 12:57 → INTOOBSV 05-11 00:46 → OBSVTOIN 05-11 00:46 → SMU 05-12 18:48
PROVIDERS: ADMIT Internal Medicine Hospice and Palliative Medicine; ATTEND Internal Medicine Hospice and Palliative Medicine
PROC: 0DBL8ZZ Excision of Transverse Colon, Via Natural or Artificial Opening Endoscopic (ICD-10-PCS; 2020-05-12)
PROC: 0DBE8ZX Excision of Large Intestine, Via Natural or Artificial Opening Endoscopic, Diagnostic (ICD-10-PCS; 2020-05-12)
PROC: 0DBM8ZZ Excision of Descending Colon, Via Natural or Artificial Opening Endoscopic (ICD-10-PCS; principal; 2020-05-12 15:00)
PROC: 0DBP8ZZ Excision of Rectum, Via Natural or Artificial Opening Endoscopic (ICD-10-PCS; 2020-05-14)
PROC: 8E0W8CZ Robotic Assisted Procedure of Trunk Region, Via Natural or Artificial Opening Endoscopic (ICD-10-PCS; 2020-05-14)
DX: K62.9 Disease of anus and rectum, unspecified (principal); I21.A1 Myocardial infarction type 2; Z68.1 Body mass index [BMI] 19.9 or less, adult; K57.30 Diverticulosis of large intestine without perforation or abscess without bleeding; K59.00 Constipation, unspecified; K63.5 Polyp of colon; K64.8 Other hemorrhoids; D64.9 Anemia, unspecified; D72.819 Decreased white blood cell count, unspecified; E11.9 Type 2 diabetes mellitus without complications; Z96.649 Presence of unspecified artificial hip joint; F12.90 Cannabis use, unspecified, uncomplicated; I10 Essential (primary) hypertension; R62.7 Adult failure to thrive; Z20.828 Contact with and (suspected) exposure to other viral communicable diseases; J44.9 Chronic obstructive pulmonary disease, unspecified; Z87.442 Personal history of urinary calculi; Z87.891 Personal history of nicotine dependence; Z79.899 Other long term (current) drug therapy; Z88.5 Allergy status to narcotic agent; Z91.041 Radiographic dye allergy status; Z91.040 Latex allergy status
CPT/HCPCS: 36415; 71045; 72197; 80048; 80053; 81000-TC; 82150-TC; 82550-TC; 82962; 83605; 83690-TC; 83735-TC; 84100-TC; 84484; 85025; 85610-TC; 85730-TC; 87040-TC; 87081; 88305; 88307; 93005; 94010; 96361; 96374; 99285; A9577; C9113; C9290; G0378; J0171; J0690; J1170; J1885; J2060; J2250; J2405; J2704; J3010; J3480; J3490; J7030; J7050; J7060; J7120; Q9964; U0003-CS

== ENCOUNTER 2020-07-22 13:43 | Emergency (ER) | payer OTHER ==
[~2020-07-22] VITALS: Ht 157.5 cm; Wt 49.0 kg
[~2020-07-22 13:43] MED LIST: AMOX-426 PO; DOCU-144 PO; HYDR-4272 PO; LISI10TA PO
[2020-07-22 13:45] VITALS: BP_SYST 109
[2020-07-22] MEDS ORDERED: NS 500 ML IV ONE (14:15)
[2020-07-22 14:28] LABS: BASOPHILS % (AUTO) 0.4 % (0.0-2.0); EOSINOPHILS % (AUTO) 0.6 % (0.0-4.0); HEMATOCRIT 39.9 % (36-48); HEMOGLOBIN 13.8 g/dL (12.0-16.0); LYMPHOCYTES # (AUTO) 1.3 K/uL (1.0-5.5); LYMPHOCYTES % (AUTO) 24.9 % (20.5-51.5); MEAN CORPUSCULAR HEMOGLOBIN 31 pg (27-31); MEAN CORPUSCULAR HGB CONC 34 % (32-36); MEAN CORPUSCULAR VOLUME 90 fL (79.0-98.0); MONOCYTES # (AUTO) 0.3 K/uL (0.0-1.0); MONOCYTES % (AUTO) 5.8 % (1.7-9.3); NEUTROPHILS # (AUTO) 3.6 K/uL (1.8-7.7); NEUTROPHILS % (AUTO) 68.3 % (40.0-70.0); PLATELET COUNT (AUTO) 220 K/uL (130-430); RED BLOOD CELL COUNT(AUTO) 4.43 MIL/uL (4.2-6.2); RED CELL DISTRIBUTION WIDTH 13.3 % (9.0-15.0); WHITE BLOOD COUNT (AUTO) 5.3 K/uL (4.8-10.8)
[2020-07-22 14:40] LABS: CALCIUM 9.2 mg/dL (8.4-11.0); CREATININE 0.9 mg/dL (0.55-1.30)
[2020-07-22 15:09] LABS: POTASSIUM 2.9 mmol/L (3.5-5.1)
[2020-07-22] MEDS ORDERED: POTASSIUM CHLORIDE 20 MEQ TAB.PRT.SR PO ONE (15:30)
[2020-07-22] MEDS ORDERED: MAGNESIUM CITRATE 300 ML ORAL SOLUTION PO ONE (15:30)
[2020-07-22 16:24] VITALS: BP_SYST 109
== END 2020-07-22 16:24 | disposition home or self-care (01) ==
LOC: SED 13:43
DX: K59.00 Constipation, unspecified (principal); E87.6 Hypokalemia; I10 Essential (primary) hypertension; E11.29 Type 2 diabetes mellitus with other diabetic kidney complication; N28.9 Disorder of kidney and ureter, unspecified; Z79.899 Other long term (current) drug therapy; Z88.5 Allergy status to narcotic agent; Z88.8 Allergy status to other drugs, medicaments and biological substances; Z91.040 Latex allergy status
CPT/HCPCS: 36415; 80048; 85025; 96360; 99283; J7040

== ENCOUNTER 2021-08-09 16:28 | Inpatient (IN) | payer OTHER, SELFPAY ==
[~2021-08-09] VITALS: Ht 162.6 cm; Wt 36.7 kg
[2021-08-09 16:31] VITALS: BP_SYST 91
[2021-08-09 17:14] LABS: BASOPHILS % (AUTO) 0.5 % (0.0-2.0); EOSINOPHILS % (AUTO) 0.8 % (0.0-4.0); HEMATOCRIT 35.9 % (36-48); HEMOGLOBIN 12.1 g/dL (12.0-16.0); LYMPHOCYTES % (AUTO) 29.7 % (20.5-51.5); MEAN CORPUSCULAR HEMOGLOBIN 32 pg (27-31); MEAN CORPUSCULAR HGB CONC 34 % (32-36); MEAN CORPUSCULAR VOLUME 95 fL (79.0-98.0); MONOCYTES # (AUTO) 0.2 K/uL (0.0-1.0); NEUTROPHILS # (AUTO) 2.2 K/uL (1.8-7.7); PLATELET COUNT (AUTO) 219 K/uL (130-430); RED CELL DISTRIBUTION WIDTH 13.3 % (9.0-15.0); WHITE BLOOD COUNT (AUTO) 3.4 K/uL (4.8-10.8)
[2021-08-09] MEDS ORDERED: NACL 0.9% 1,000 ML IV ONE (17:15)
[2021-08-09 18:24] LABS: INR 1.2 (0.8-1.2); PROTHROMBIN TIME 12.7 SECS (9.5-12.5)
[2021-08-09 18:51] LABS: ANION GAP 9 (5-15); CALCIUM 8.7 mg/dL (8.4-11.0); CHLORIDE 111 mmol/L (98-107); CREATININE 0.64 mg/dL (0.55-1.30); GLUCOSE 90 mg/dL (70-99); POTASSIUM 3.6 mmol/L (3.5-5.1); SODIUM SERUM 146 mmol/L (136-145); UREA NITROGEN, BLOOD 23 mg/dL (8-21)
[2021-08-09 18:57] LABS: ALANINE AMINOTRANSFERASE 18 U/L (12-78); ALBUMIN 2.9 g/dL (3.4-4.8); ASPARTATE AMINOTRANSFERASE 16 U/L (10-37); GFR AFRICAN AMERICAN 121 mL/min (>90); TOTAL BILIRUBIN 0.4 mg/dL (0.0-1.0)
[2021-08-09 19:15] LABS: ACETONE, SERUM TRACE (NEGATIVE)
[2021-08-09] MEDS ORDERED: ACETAMINOPHEN 325 MG TABLET PO PRN (22:00)
[2021-08-09] MEDS ORDERED: ONDANSETRON HCL 4 MG/2 ML VIAL IVP PRN (22:00)
[2021-08-09] MEDS ORDERED: LORazepam 2 MG/ML VIAL IVP PRN (22:00)
[2021-08-09 22:32] VITALS: BP_SYST 120
[2021-08-09] MEDS: D5/0.45 NS 1,000 ML IV SCH (22:54)
[2021-08-10] MEDS: D5/0.45 NS 1,000 ML IV SCH ×2 (06:15→09:30)
[2021-08-10 06:36] LABS: BASOPHILS % (AUTO) 0.3 % (0.0-2.0); EOSINOPHILS % (AUTO) 0.6 % (0.0-4.0); HEMATOCRIT 32.1 % (36-48); HEMOGLOBIN 11.2 g/dL (12.0-16.0); LYMPHOCYTES # (AUTO) 1.4 K/uL (1.0-5.5); LYMPHOCYTES % (AUTO) 34.3 % (20.5-51.5); MEAN CORPUSCULAR HEMOGLOBIN 32 pg (27-31); MEAN CORPUSCULAR HGB CONC 35 % (32-36); MEAN CORPUSCULAR VOLUME 92 fL (79.0-98.0); MONOCYTES # (AUTO) 0.2 K/uL (0.0-1.0); MONOCYTES % (AUTO) 5.8 % (1.7-9.3); NEUTROPHILS # (AUTO) 2.3 K/uL (1.8-7.7); PLATELET COUNT (AUTO) 205 K/uL (130-430); RED BLOOD CELL COUNT(AUTO) 3.49 MIL/uL (4.2-6.2); RED CELL DISTRIBUTION WIDTH 13.3 % (9.0-15.0)
[2021-08-10 06:51] LABS: CALCIUM 8.3 mg/dL (8.4-11.0); CREATININE 0.46 mg/dL (0.55-1.30); PHOSPHORUS 2.7 mg/dL (2.7-4.5)
[2021-08-10 07:29] LABS: POTASSIUM 2.9 mmol/L (3.5-5.1)
[2021-08-10] MEDS: DOCUSATE SODIUM 100 MG CAPSULE PO SCH ×3 (08:08→21:33)
[2021-08-10] MEDS: LISINOPRIL 10 MG TABLET (PRINIVIL) PO SCH ×2 (08:08→09:00)
[2021-08-10 08:15] VITALS: BP_SYST 99
[2021-08-10] MEDS ORDERED: POTASSIUM CHLORIDE 20 MEQ TAB.PRT.SR PO ONE (08:15)
[2021-08-10] MEDS ORDERED: POTASSIUM CHLORIDE 40 MEQ in NS 250 ML IV ONE (09:00)
[2021-08-10 12:00] VITALS: BP_SYST 111
[2021-08-10 16:00] VITALS: BP_SYST 124
[2021-08-10 20:00] VITALS: BP_SYST 99
[2021-08-11] VITALS: BP_SYST 108
[2021-08-11] MEDS: D5/0.45 NS 1,000 ML IV SCH ×3 (04:42→22:52)
[2021-08-11 08:00] VITALS: BP_SYST 105
[2021-08-11] MEDS: DOCUSATE SODIUM 100 MG CAPSULE PO SCH ×2 (08:14→20:41)
[2021-08-11] MEDS ORDERED: DIATR MEGLU/DIATRIZ SOD 30 ML SOLUTION PO ONE (10:02)
[2021-08-11 10:24] LABS: BASOPHILS % (AUTO) 0.3 % (0.0-2.0); EOSINOPHILS # (AUTO) 0.1 K/uL (0.0-0.4); EOSINOPHILS % (AUTO) 1.1 % (0.0-4.0); HEMATOCRIT 33.9 % (36-48); HEMOGLOBIN 11.6 g/dL (12.0-16.0); LYMPHOCYTES # (AUTO) 1.4 K/uL (1.0-5.5); LYMPHOCYTES % (AUTO) 28.6 % (20.5-51.5); MEAN CORPUSCULAR HEMOGLOBIN 32 pg (27-31); MEAN CORPUSCULAR HGB CONC 34 % (32-36); MEAN CORPUSCULAR VOLUME 94 fL (79.0-98.0); MONOCYTES # (AUTO) 0.3 K/uL (0.0-1.0); MONOCYTES % (AUTO) 6.6 % (1.7-9.3); NEUTROPHILS # (AUTO) 3.1 K/uL (1.8-7.7); NEUTROPHILS % (AUTO) 63.4 % (40.0-70.0); PLATELET COUNT (AUTO) 176 K/uL (130-430); RED BLOOD CELL COUNT(AUTO) 3.63 MIL/uL (4.2-6.2); RED CELL DISTRIBUTION WIDTH 13.2 % (9.0-15.0); WHITE BLOOD COUNT (AUTO) 4.8 K/uL (4.8-10.8)
[2021-08-11 10:26] LABS: CALCIUM 8.2 mg/dL (8.4-11.0); CREATININE 0.52 mg/dL (0.55-1.30); POTASSIUM 4.1 mmol/L (3.5-5.1)
[2021-08-11 10:33] LABS: ALBUMIN 2.4 g/dL (3.4-4.8); TOTAL BILIRUBIN 0.3 mg/dL (0.0-1.0)
[2021-08-11 12:39] VITALS: BP_SYST 106
[2021-08-11 16:00] VITALS: BP_SYST 115
[2021-08-11 20:15] VITALS: BP_SYST 92
[2021-08-12 01:51] VITALS: BP_SYST 107
[2021-08-12 08:00] VITALS: BP_SYST 112
[2021-08-12] MEDS: DOCUSATE SODIUM 100 MG CAPSULE PO SCH ×2 (09:06→20:45)
[2021-08-12] MEDS: D5/0.45 NS 1,000 ML IV SCH ×2 (09:07→20:46)
[2021-08-12 12:19] VITALS: BP_SYST 100
[2021-08-12 16:03] VITALS: BP_SYST 106
[2021-08-13 00:17] VITALS: BP_SYST 107
[2021-08-13 01:35] VITALS: BP_SYST 106
[2021-08-13] MEDS: D5/0.45 NS 1,000 ML IV SCH (05:46)
[2021-08-13] MEDS: DOCUSATE SODIUM 100 MG CAPSULE PO SCH ×2 (08:23→21:00)
[2021-08-13 08:39] VITALS: BP_SYST 132
[2021-08-13 14:25] VITALS: BP_SYST 132
== END 2021-08-13 21:37 | DRG 640 ==
LOC: SED 16:28 → SMU 20:02
PROVIDERS: ADMIT Internal Medicine Hospice and Palliative Medicine; ATTEND Internal Medicine Hospice and Palliative Medicine
PROC: 4A10X4Z Monitoring of Central Nervous Electrical Activity, External Approach (ICD-10-PCS; principal; 2021-08-10)
DX: E87.6 Hypokalemia (principal); N18.6 End stage renal disease; E43 Unspecified severe protein-calorie malnutrition; Z68.1 Body mass index [BMI] 19.9 or less, adult; I12.0 Hypertensive chronic kidney disease with stage 5 chronic kidney disease or end stage renal disease; R00.1 Bradycardia, unspecified; E86.0 Dehydration; E87.0 Hyperosmolality and hypernatremia; G89.4 Chronic pain syndrome; Z20.822 Contact with and (suspected) exposure to COVID-19; J44.9 Chronic obstructive pulmonary disease, unspecified; D64.9 Anemia, unspecified; E11.22 Type 2 diabetes mellitus with diabetic chronic kidney disease; D72.819 Decreased white blood cell count, unspecified; Z88.5 Allergy status to narcotic agent; Z91.041 Radiographic dye allergy status; Z91.040 Latex allergy status; Z79.899 Other long term (current) drug therapy; Z87.442 Personal history of urinary calculi; Z85.048 Personal history of other malignant neoplasm of rectum, rectosigmoid junction, and anus
CPT/HCPCS: 36415; 70450-TC; 71045; 76376; 80048; 80053; 82009; 82550; 82607; 83605; 83735; 84100; 84443; 84484; 85025; 85610-TC; 85730-TC; 93005; 95816; 96360; 97116-GP; 97530-GP; 99285; J2060; J3480; J7050; Q9964